=== PATIENT | female | born 1960 | race Caucasian/White ===

== ENCOUNTER 2025-04-16 19:32 | Emergency (ER) | payer MEDICAID, SELFPAY ==
--- NOTE | 2025-04-16 19:40 | XR_ITS ---
EXAMINATION: AP chest single view TECHNIQUE: AP portable upright chest single view Date and time: April 16, 2025, 2033 hours, comparison July 07, 2019 INDICATIONS: Chest pain today FINDINGS: Large retrocardiac gastric hernia Mild prominence cardiac contour Mild to moderate vascular congestion No lobar pneumonia or pulmonary edema Prominent osteopenia IMPRESSION: Large retrocardiac gastric hernia Mild to moderate vascular congestion
--- NOTE | 2025-04-16 19:40 | EDNOTE_ITS ---
ED General RME/HPI General Chief complaint: Dental/Oral/Throat Stated complaint: POST CHOKE Time Seen by Provider: 04/16/25 19:40 Arrival date/time: 04/16/25 19:32 RME / HPI RME / HPI narrative: Dr. Rodrigez?s Main ED Evaluation: 64yo female SHU from home presents to the ED for a choking episode that occurred 2 hours SPECIMEN BOSS. Patient was eating a filtering machine tender helper when she started choking on it. She endorses having throat pain. Denies any shortness of breath or any other associated symptoms. Denies tobacco use. Related Data Home Medications ?Medication ?Instructions ?Recorded ?Confirmed albuterol sulfate 90 mcg/actuation 2 puff inhalation Q 6H PRN Wheezing 06/17/19 07/07/19 aerosol inhaler Previous Rx's ?Medication ?Instructions ?Recorded lisinopril 40 mg tablet 20 mg (1/2 x 40 mg) PO QDAY #0 tabs 07/11/19 sennosides 8.6 mg-docusate sodium 1 tab-cap PO BID PRN constipation 07/11/19 50 mg capsule #14 caps pantoprazole 40 mg tablet,delayed 40 mg PO QDAY #60 ta bs 04/08/22 release ferrous sulfate 325 mg (65 mg 325 mg PO TID #90 tabs 1 iron) tablet,delayed release Allergies Allergy/AdvReac Type Severity Reaction Status Date / Time No Known Allergies Allergy Verified 04/16/25 19:40 Review of Systems Review of Systems Systems Reviewed: All systems reviewed, normal except as documented Past Medical History Past Medical History NEUROLOGIC: Negative Neurological Disorders or Seizures CARDIAC: Positive Hypertension (takes medication); Negative Cardiac Disorders or Congestive Heart Failure RESPIRATORY: Negative Chronic Obstructive Pulmonary Disease (COPD) or Asthma GASTROINTESTINAL: Positive Gastrointestinal Disorders and Gall Bladder Disease GENITOURINARY: Negative Genitourinary Disorders or Renal Disease REPRODUCTIVE: Positive Previous Pregnancies MUSCULOSKELETAL: Negative Musculoskeletal Disorders ENDOCRINE: Negative Endocrine Disorders, Diabetes Mellitus Type 1 or Diabetes Mellitus Type 2 HEMATOLOGIC: Positive Blood Disorders and Anemia; Negative Sickle Cell Disease OTHER HISTORY: Positive Chicken Pox; Negative Hospitalization, Shingles, Falls, Blood Transfusions, Anesthesia Reactions or Cancer Family History FAMILY HISTORY: Positive Family Surgery; Negative Family Cardiac Disorders, Family Cancer or Family Anesthesia Reaction Surgical History SURGICAL: Positive Tubal Ligation Social History SMOKING STATUS: Former smoker SUBSTANCE USE: methamphetamine ED Exam Narrative Physical exam: Generally patient is alert elderly appearing female swallowing her saliva without difficulty, lungs show mild wheezes bilaterally with good air exchange, heart regular rate and rhythm, abdomen soft nondistended nontender, skin is warm pale and dry, neurologic exam [place] Coma Scale is 15 Course Course Course Narrative: CXR is ordered to r/o retained foreign body. Quality Measures none Orders Category Date Time Status XR chest 1V portable Stat Exams 04/16/25 19:40 Completed Vital Signs Vital signs: Vital Signs Temperature 98.1 F 04/16/25 19:41 Pulse Rate 87 04/16/25 19:41 Respiratory Rate 18 04/16/25 19:41 Blood Pressure 182/103 H 04/16/25 19:41 Pulse Oximetry (%) 100 04/16/25 19:41 Oxygen Delivery Method Room Air 04/16/25 19:41 Discharge Plan Plan Patient Disposition: HOME (Self Care) Prescriptions/Referrals Prescriptions/Med Rec: No Action albuterol sulfate 90 mcg/actuation Hfa Aerosol Inhaler 2 puff INHALATION Q6H PRN (Reason: Wheezing) lisinopril 40 mg Tablet 20 mg PO QDAY Qty: 0 0RF sennosides-docusate sodium 8.6-50 mg capsule 1 tab-cap PO BID PRN (Reason: constipation) Qty: 14 0RF pantoprazole 40 mg tablet,delayed release (DR/EC) 40 mg PO QDAY Qty: 60 2RF ferrous sulfate 325 mg (65 mg iron) tablet,delayed release (DR/EC) 325 mg PO TID Qty: 90 3RF Referrals: Dale Degroot MD [Primary Care Provider, Family Practice] - In 1 week Problem List Clinical Impression: Choking episode Patient/Caregiver Discharge Instructions Additional Instructions: Patient is stable for discharge. Print Language: [place] Stand Alone Forms: Lisa Award Info., Patient Portal Info Letter MDM Narrative MDM hospital course (for use when minimal MDM required): Scribe Attestation: 04/16/25 Aysha Alvarez am scribing for and in the presence of Dr. Rodrigez. Chest x-ray shows mild vascular congestion. Patient was able to tolerate water without difficulty here in the emergency room. O2 saturation is 95% on room air. Patient is in no respiratory distress. Patient stable for discharge. Clinical Information Provided by: patient and EMS Medical Records reviewed [facility] (Per chart review, patient was admitted here on 04/05/22 for anemia requiring transfusions.) Meds/Rx considered, not ordered None Labs/Rad/Tests considered, not ordered None Chronic Illness/Social Conditions which may negatively complicate care or outcome(s)-explain: None or not applicable EKG EKG not done Labs Labs: none Imaging Imaging interpretation: none Medication Administration(s) none Diagnosis Differential Diagnosis ED Complaint MDM: See MDM.
[2025-04-16 19:41] VITALS: BP 182/103; PULSE 74; PULSE 87; RESP 18; TEMP 36.7; O2SAT 100; BMI 24.7
[2025-04-16 21:14] VITALS: BP 174/97; PULSE 98; RESP 19; TEMP 36.9; O2SAT 97
== END 2025-04-16 21:17 | disposition home or self-care (01) ==
PROVIDERS: Emergency Provider Emergency Medicine; PCP Family Medicine
DX: R09.89 Other specified symptoms and signs involving the circulatory and respiratory systems (principal)
CPT/HCPCS: 71045; 99284